=== PATIENT | male | born 1990 | race African-American/Black ===

== ENCOUNTER → 2016-08-11 | Outpatient (CLI) | payer OTHER ==
--- NOTE | 2016-08-11 15:31 | RAD ---
EXAM: Chest 2 views. HISTORY: Cough, asthma. COMPARISON: 02/11/2008. FINDINGS: Frontal and lateral views of the chest are obtained. There are no confluent infiltrates. There is no pneumothorax or pleural effusion. The heart is not enlarged. IMPRESSION: 1. No confluent infiltrates.
== END | disposition home or self-care (01) ==
LOC: RAD 14:55
PROVIDERS: ATTEND Family Medicine
DX: R05 Cough (principal)
CPT/HCPCS: 71020